=== PATIENT | female | born 1960 | race Caucasian/White ===

== ENCOUNTER → 2017-06-05 14:07 | Outpatient (CLI) | payer BC ==
[2014-10-05 15:06] VITALS: BMI 40.4
[~2017-06-05 14:07] MED LIST: ACETAMINOPHEN500 M1 PO; ALDACTONE25 MG PO; ASPIRIN325 MG PO; ATIVAN0.5 MG PO; BAYER CHEWABLE81 MG PO; CARAFATE1 G PO; CELEXA40 MG PO; CLARITIN 10 MG10 MG PO; COREG6.25 MG PO; CYCLOBENZAPRINE10 MG; FLEXERIL5 MG PO; METAMUCIL FIB1 WAFER PO; MIRALAX17 GM PO; PRILOSEC20 MG PO; PROTONIX40 MG PO
== END | disposition home or self-care (01) ==
LOC: D.MAMMO 08:45
DX: Z12.31 Encounter for screening mammogram for malignant neoplasm of breast (principal)

== ENCOUNTER → 2017-10-19 08:30 | Outpatient (CLI) | payer BC ==
[2014-10-05 15:06] VITALS: BMI 40.4
== END | disposition home or self-care (01) ==
LOC: D.RT 08:30
DX: R06.09 Other forms of dyspnea (principal)

== ENCOUNTER → 2018-04-01 18:40 | Outpatient (CLI) | payer BC ==
[2014-10-05 15:06] VITALS: BMI 40.4
== END | disposition home or self-care (01) ==
LOC: D.SLEEP 18:40
DX: G47.33 Obstructive sleep apnea (adult) (pediatric) (principal); Z01.812 Encounter for preprocedural laboratory examination

== ENCOUNTER → 2019-01-15 11:55 | Outpatient (CLI) | payer BC ==
[2014-10-05 15:06] VITALS: BMI 40.4
== END | disposition home or self-care (01) ==
LOC: D.RT 01-13 14:00 → D.RAD 01-13 15:00 → D.RT 11:55
PROVIDERS: ATTEND Internal Medicine Pulmonary Disease
DX: J45.909 Unspecified asthma, uncomplicated (principal)

== ENCOUNTER → 2020-04-30 10:10 | Outpatient (CLI) | payer BC ==
[2014-10-05 15:06] VITALS: BMI 40.4
== END | disposition home or self-care (01) ==
LOC: D.LAB 10:10
PROVIDERS: ATTEND Internal Medicine Pulmonary Disease
DX: Z11.59 Encounter for screening for other viral diseases (principal)

== ENCOUNTER → 2020-05-05 09:32 | Outpatient (CLI) | payer BC ==
[2014-10-05 15:06] VITALS: BMI 40.4
== END | disposition home or self-care (01) ==
LOC: D.RT 05-03 09:28
PROVIDERS: ATTEND Internal Medicine Pulmonary Disease
DX: J45.909 Unspecified asthma, uncomplicated (principal)

== ENCOUNTER 2021-01-18 10:15 | Outpatient (CLI) | payer BC ==
[2014-10-05 15:06] VITALS: BMI 40.4
== END 2021-01-18 10:45 | disposition home or self-care (01) ==
LOC: D.MAMMO 10:15
PROVIDERS: ATTEND Family Medicine
DX: Z12.31 Encounter for screening mammogram for malignant neoplasm of breast (principal)